=== PATIENT | female | born 1970 | race African-American/Black ===

== ENCOUNTER 2023-12-17 21:51 | Emergency (ER) | payer MEDICAID ==
[~2023-12-17] VITALS: Ht 165.1 cm; Wt 60.0 kg
[2023-12-17 21:59] VITALS: O2SAT 99
[2023-12-17 22:10] VITALS: TEMP 96.9
[2023-12-18] MEDS: SODIUM CHLORIDE 0.9% 1,000 ML IV ONE (00:13)
[2023-12-18] MEDS: MECLIZINE 12.5MG TABLET PO ONE (00:13)
[2023-12-18] MEDS: ONDANSETRON HCL 4MG/2ML INJ IV STA (00:13)
[2023-12-18 02:40] LABS: BASOPHILS % 0.6 % (0.0-2.0); EOSINOPHILS % 0.6 % (0.0-5.0); HEMATOCRIT. 36.6 % (36.0-48.0); HEMOGLOBIN. 12.1 g/dL (12.0-16.0); LYMPHOCYTES % 17.6 % (20.0-50.0); MEAN CORPUSCULAR HEMOGLOBIN 29.3 pg (28.0-32.0); MEAN CORPUSCULAR VOLUME 88.6 fL (81.0-99.0); MEAN PLATELET VOLUME 9.8 fl (7.4-10.4); MONOCYTES % 3.1 % (2.0-8.0); NEUTROPHILS % 78.1 % (40.0-76.0); PLATELET 238 x1000/uL (130-400); RED BLOOD CELL COUNT 4.13 mill/uL (4.2-5.4); RED CELL DISTRIBUTION WIDTH 14.2 % (11.6-14.6); WHITE BLOOD COUNT 9.7 x1000/uL (4.5-11.0)
[2023-12-18 04:28] LABS: CHLORIDE 112 mEq/L (98-107); POTASSIUM 3.8 mEq/L (3.5-5.1); SODIUM 142 mEq/L (136-145)
[2023-12-18 04:29] LABS: CARBON DIOXIDE 25 mEq/L (21-32)
[2023-12-18 04:30] LABS: CALCIUM 8.6 mg/dL (8.7-10.4)
[2023-12-18 04:34] LABS: CREATININE 0.5 mg/dL (0.6-1.0); GLUCOSE 105 mg/dL (70-105); UREA NITROGEN BLOOD 10 mg/dL (9-23)
[2023-12-18 04:42] LABS: TROPONIN I HIGH SENSITIVITY < 4 ng/L (3.0-34)
[2023-12-18] MEDS ORDERED: MECL-217 MT (04:56)
[2023-12-18 05:26] VITALS: BP 115/59; PULSE 58; RESP 14
== END 2023-12-18 06:03 | disposition home or self-care (01) ==
LOC: ER 21:51
DX: R42 Dizziness and giddiness (principal)
CPT/HCPCS: 36415; 71045; 93005; 99285; 80048; 85025; 84484; 70450; 96361; 96374; J7030; J8597; J2405; Z7610